=== PATIENT | male | born 1960 | race Hispanic/Latino ===

== ENCOUNTER 2021-04-20 18:22 | Emergency (ER) | payer MEDICARE ==
[2021-04-20] MEDS ORDERED: SODIUM CHLORIDE 0.9% 1000 ML 1,000 ML IV ONE (18:41)
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
[2021-04-20 19:02] LABS: Basophils # (Auto) 0.1 K/mm3 (0.0-0.1); Basophils % (Auto) 1.2 % (0.0-1.8); Eosinophils # (Auto) 0.3 K/mm3 (0.0-0.4); Eosinophils % (Auto) 3.8 % (0.0-4.3); Hematocrit 32.4 % (35.5-45.6); Hemoglobin 11.8 gm/dl (11.8-15.2); Lymphocytes # (Auto) 3.7 K/mm3 (1.2-5.4); Lymphocytes % (Auto) 40.6 % (13.4-35.0); Mean Corpuscular HGB Conc 36 % (32-34); Mean Corpuscular Volume 88 fl (84-94); Monocytes # (Auto) 0.7 K/mm3 (0.0-0.8); Monocytes % (Auto) 7.5 % (0.0-7.3); Platelet Count 301 K/mm3 (140-440); Red Blood Count 3.68 M/mm3 (3.65-5.03); Red Cell Distribution Width 12.9 % (13.2-15.2)
--- NOTE | 2021-04-20 19:05 | XRay Report ---
CHEST 1 VIEW 04/20/2021 5:58 PM INDICATION / CLINICAL INFORMATION: Weakness. COMPARISON: None available. FINDINGS: SUPPORT DEVICES: None. HEART / MEDIASTINUM: No significant abnormality. LUNGS / PLEURA: No significant pulmonary or pleural abnormality. No pneumothorax. ADDITIONAL FINDINGS: No significant additional findings. IMPRESSION: 1. No acute findings. Signer Name: Fernando Gnozalez MD Signed: 04/20/2021 7:00 PM Workstation Name: [id number]
[2021-04-20 19:16] LABS: INR 0.81 (0.87-1.13)
[2021-04-20 19:29] LABS: BUN/Creatinine Ratio 15; Blood Urea Nitrogen 19 mg/dL (9-20); Calcium 8.7 mg/dL (8.4-10.2); Hemolysis Index 1
[2021-04-20 19:31] LABS: Alanine Aminotransferase 20 units/L (7-56); Albumin 3.2 g/dL (3.9-5)
[2021-04-20 19:36] LABS: Bilirubin,Direct < 0.2 mg/dL (0-0.2)
[2021-04-20] MEDS ORDERED: INSULIN REGULAR, HUMAN 100 UNITS/1 ML IV ONE (20:33)
--- NOTE | 2021-04-20 20:38 | Cat Scan Report ---
CT HEAD WITHOUT CONTRAST INDICATION / CLINICAL INFORMATION: weakness. TECHNIQUE: All CT scans at this location are performed using CT dose reduction for ALARA by means of automated e xposure control. COMPARISON: Head CT 05/07/2008 FINDINGS: HEMORRHAGE: No evidence of intracranial hemorrhage or extra-axial fluid collection. EXTRA-AXIAL SPACES: Cortical sulci and sylvian fissures are mildly enlarged reflecting a degree of pa renchymal volume loss which is somewhat greater than expected for the patient's age of 60 years. Basi lar cisterns have an unremarkable appearance. VENTRICULAR SYSTEM: The third and lateral ventricles are mildly enlarged reflecting presence of age r elated parenchymal volume loss. This has developed since prior study 05/07/2008. CEREBRAL PARENCHYMA: Periventricular and deep white matter lucency is observed. This is probably seco ndary to mild microvascular ischemic change. There is no indication of recent infarction. No areas of encephalomalacia are identified. MIDLINE SHIFT OR HERNIATION: There is no mass effect. CEREBELLUM / BRAINSTEM: Brainstem has an unremarkable appearance. Age related cerebellar atrophy is n oted. MIDLINE STRUCTURES:Pituitary gland has an unremarkable appearance. No abnormalities are seen in the p ineal region. INTRACRANIAL VESSELS:Calcified atherosclerotic plaque is present along the course of the cavernous se gments of both internal carotid arteries. Similar findings are seen at the distal vertebral arteries. CRANIOCERVICAL JUNCTION:No significant abnormality. ORBITS: visualized portions of the orbits have an unremarkable appearance. SOFT TISSUES of HEAD: No significant abnormality. CALVARIUM: Evaluation of bone windows reveals no abnormalities. PARANASAL SINUSES / MASTOID AIR CELLS: Several millimeters of mucosal thickening are seen at the base of the maxillary sinuses. Paranasal sinuses are otherwise free from inflammatory mucosal disease. Ma stoid air cells are normally pneumatized. ADDITIONAL FINDINGS: None. IMPRESSION: 1. No acute intracranial abnormality. 2. Mild parenchymal volume loss has developed since baseline study 05/07/2008. Signer Name: Sam Segura MD Signed: 04/20/2021 8:34 PM Workstation Name: [id number]
[2021-04-20 23:36] LABS: Bacteria,Urine 1+ /HPF (Negative); WBC,Urine < 1.0 /HPF (0.0-6.0)
[2021-04-20 23:43] LABS: Bilirubin,Urine NEG (Negative); Blood,Urine SM (Negative); Color,Urine Straw (Yellow); Urobilinogen,Urine < 2.0 mg/dL (<2.0)
[2021-04-20 23:44] LABS: Protein,Urine >500 mg/dL (Negative)
[2021-04-21 00:32] VITALS: BP 162/86
--- NOTE | 2021-04-21 13:43 | Electrocardiograph Report ---
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
== END 2021-04-21 | disposition home or self-care (01) ==
LOC: ED 18:22
DX: E11.65 Type 2 diabetes mellitus with hyperglycemia (principal); R53.1 Weakness; I10 Essential (primary) hypertension; Z86.73 Personal history of transient ischemic attack (TIA), and cerebral infarction without residual deficits; Z98.890 Other specified postprocedural states; Z88.2 Allergy status to sulfonamides; Z91.09 Other allergy status, other than to drugs and biological substances
CPT/HCPCS: 36415; 70450; 71045; 80048; 80076; 81001; 82550; 82962; 83735; 83880; 84484; 85025; 85610; 93005; 96361; 96374; 99285; J7030; Q0162; Q9967; J1815